=== PATIENT | male | born 1985 | race Caucasian/White ===

== ENCOUNTER 2018-06-25 18:26 | Emergency (ER) | payer OTHER ==
--- NOTE | 2018-06-25 20:15 | Emergency Department Report ---
Blank Doc - Documentation Documentation: This is a 33-year-old male that presents with acute headache with dizziness. Denies worst headache or thundercalp headache. This initial assessment/diagnostic orders/clinical plan/treatment(s) is/are subject to change based on patient's health status, clinical progression and re- assessment by fellow clinical providers in the ED. Further treatment and workup at subsequent clinical providers discretion. Patient/guardians urged not to elope from the ED as their condition may be serious if not clinically assessed and managed. Initial orders include: 1- Patient sent to [facility] for further evaluation and treatment 2- CT head
--- NOTE | 2018-06-25 21:03 | Cat Scan Report ---
PROCEDURE: CT head without contrast. TECHNIQUE: Computerized tomography of the head was performed without contrast material. CT DOSE LENGTH PRODUCT: 929.2 mGycm HISTORY: Headache. COMPARISONS: None. FINDINGS: The ventricles are normal in size. The butts matter and white matter appear normal. There are no mass lesions. There is no intracranial hemorrhage. The calvarium appears intact. The mastoid air cells are clear. There is fluid in both maxillary sinuses. IMPRESSION: Normal study of the brain. Acute maxillary sinusitis. This document is electronically signed by Dusty Austin MD., June 25 2018 09:01:48 PM ET
--- NOTE | 2018-06-25 23:50 | Emergency Department Report ---
ED Headache HPI - General Chief Complaint: Headache Stated Complaint: DIZZY/HEADACHE/RT SIDE EAR ACHE Time Seen by Provider: 06/25/18 20:12 - History of Present Illness Initial Comments: 33-year-old male emergency department complaining of dull throbbing frontal parietal headache and pressure to the frontal sinus region. Adult O [place] fashion that has been nonprogressive since onset. Today associated with some dizziness and can congestion. Also felt some pressure to his ear and some mild ringing often only did not try to take any medication for it, however. No known migraine history, reports no known family history of any subarachnoid hemorrhaging or any other cranial vascular pathology.. Post no fever, chills, sweats, neck pain, chest pain, palpitations, nausea, vomiting. Quality: mild Head Injury Location: frontal, parietal Recent Head Trauma: no recent headache/trauma, occasional headaches Associated Symptoms: nasal congestion. denies: confusion, fatigue, fever/chills, flushing, loss of consciousness, nausea/vomiting, numbness in legs/feet, rash, seizures, stiff neck Allergies/Adverse Reactions: Allergies No Known Allergies Allergy (Unverified 02/27/15 20:05) Home Medications: Ambulatory Orders Acetaminophen/Codeine [Tylenol /Codeine # 3 tab] 1 tab PO Q6H PRN #15 tab 10/17/15 Amoxicillin [Amoxicillin TAB] 875 mg PO BID #20 tablet 10/17/15 Amoxicillin/Potassium Clav [Augmentin 875-125 Tablet] 1 each PO BID #20 tablet 06/25/18 predniSONE [Deltasone] 20 mg PO QDAY #7 tab 06/25/18 traMADol [Ultram] 50 mg PO Q6HR PRN #20 tablet 06/25/18 ED Review of Systems ROS: Stated complaint: DIZZY/HEADACHE/RT SIDE EAR ACHE Other details as noted in HPI Constitutional: denies: chills, fever Eyes: denies: eye pain, eye discharge, vision change ENT: denies: ear pain, throat pain Respiratory: denies: cough, shortness of breath, wheezing Cardiovascular: denies: chest pain, palpitations Endocrine: no symptoms reported Gastrointestinal: denies: abdominal pain, nausea, diarrhea Genitourinary: denies: urgency, dysuria Musculoskeletal: denies: back pain, joint swelling, arthralgia Skin: denies: rash, lesions Neurological: denies: headache, weakness, paresthesias Psychiatric: denies: anxiety, depression Hematological/Lymphatic: denies: easy bleeding, easy bruising ED Past Medical Hx - Past Medical History Previous Medical History?: No - Surgical History Past Surgical History?: No - Social History Smoking Status: Current Every Day Smoker Substance Use Type: Alcohol - Medications Home Medications: Home Medications Medication Instructions Recorded Confirmed Last Taken Type Acetaminophen/Codeine [Tylenol 1 tab PO Q6H PRN #15 tab 10/17/15 Unknown Rx /Codeine # 3 tab] Amoxicillin [Amoxicillin TAB] 875 mg PO BID #20 tablet 10/17/15 Unknown Rx Amoxicillin/Potassium Clav 1 each PO BID #20 tablet 06/25/18 Unknown Rx [Augmentin 875-125 Tablet] predniSONE [Deltasone] 20 mg PO QDAY #7 tab 06/25/18 Unknown Rx traMADol [Ultram] 50 mg PO Q6HR PRN #20 tablet 06/25/18 Unknown Rx ED Physical Exam - General Limitations: No Limitations General appearance: alert, in no apparent distress - Head Head exam: Present: atraumatic, normocephalic - Eye Eye exam: Present: normal appearance, PERRL, EOMI, other (negative funduscopic examination. No icterus). Absent: nystagmus Pupils: Present: normal accommodation - ENT ENT exam: Present: normal exam, normal orophraynx, mucous membranes moist - Neck Neck exam: Present: normal inspection, full ROM. Absent: tenderness, meningismus, lymphadenopathy, thyromegaly - Respiratory Respiratory exam: Present: normal lung sounds bilaterally. Absent: respiratory distress, wheezes, rales, rhonchi, chest wall tenderness, accessory muscle use - Cardiovascular Cardiovascular Exam: Present: regular rate, normal rhythm. Absent: systolic murmur, diastolic murmur, rubs, gallop - GI/Abdominal GI/Abdominal exam: Present: soft, normal bowel sounds. Absent: distended, guarding, rebound, hyperactive bowel sounds, hypoactive bowel sounds, mass, bruit - Rectal Rectal exam: Present: deferred - Extremities Exam Extremities exam: Present: normal inspection - Back Exam Back exam: Present: normal inspection, full ROM. Absent: CVA tenderness (R), CVA tenderness (L) - Neurological Exam Neurological exam: Present: alert, oriented X3, CN II-XII intact, normal gait, other (negative Romberg. Gait Cordata spools. Speech is normal). Absent: altered, abnormal gait, motor sensory deficit - Psychiatric Psychiatric exam: Present: normal affect, normal mood. Absent: anxious, flat affect, manic - Skin Skin exam: Present: warm, dry, intact, normal color. Absent: rash, diaphoretic, erythema, urticaria ED Course Vital Signs 06/25/18 20:12 Temperature 97.9 F Pulse Rate 78 Respiratory 18 Rate Blood Pressure 125/85 O2 Sat by Pulse 99 Oximetry ED Medical Decision Making - Radiology Data Radiology results: report reviewed (CT scan did reveal some acute maxillary sinusitis. No other intracranial pathologies.) - Medical Decision Making 33-year-old male with a history of sinus congestion issues with reported acute maxillary sinusitis and a headache. She has not yet tried any medications to resolve. Plan is to try some [id number] for headache and treatment. Sinusitis. If MEDIC[facility] case is unsuccessful, he can resort to the Ultram as needed when necessary for pain. With utilization of anti-biotics in sterile reports she should be to resolve the inflammatory changes and swelling and pressure was associated with sinus aspect of this headache. Critical care attestation.: If time is entered above; I have spent that time in minutes in the direct care of this critically ill patient, excluding procedure time. ED Disposition Clinical Impression: Acute sinusitis, Cephalgia Disposition: -01 TO HOME OR SELFCARE Is pt being admited?: No Does the pt Need Aspirin: No Condition: Stable Instructions: Acute Headache (ED), Sinusitis (ED), Acute Bacterial Rhinosinusitis (ED) Referrals: PETRA HOPKINS MD [Primary Care Provider] - 3-5 Days
[2018-06-26 00:18] VITALS: BP 120/67
== END 2018-06-26 00:22 | disposition home or self-care (01) ==
LOC: ED 18:26
DX: J01.10 Acute frontal sinusitis, unspecified (principal); J01.00 Acute maxillary sinusitis, unspecified; F17.200 Nicotine dependence, unspecified, uncomplicated
CPT/HCPCS: 70450; 99283